=== PATIENT | female | born 1960 | race Caucasian/White ===

== ENCOUNTER 2019-02-12 07:43 | Emergency (ER) | payer BC, OTHER ==
[2019-02-12 08:07] VITALS: BP 148/93
[2019-02-12] MEDS ORDERED: Ketorolac INJ* 30 MG/ML 1 ML VIAL IM ONE (08:25)
--- NOTE | 2019-02-12 08:32 | UC ---
Shoulder Pain HPI - HPI Summary HPI Summary: 58-year-old female who started having right anterior shoulder pain Thanks afternoon with no known injury. She states she was not doing a lot of repetitive motion. She initially had some tingling in her fourth and fifth fingers but that has resolved. She continues to have pain in the anterior shoulder without radiation. She denies any other symptoms. - History of Current Complaint Chief Complaint: UCUpperExtremity Stated Complaint: RIGHT ARM PAIN Time Seen by Provider: 02/12/19 08:11 ?: No Onset/Duration: Gradual Onset Timing: Constant Severity Initially: Mild Severity Currently: Moderate Pain Intensity: 8 Character: Dull, Aching Aggravating Factor(s): Movement, Lifting Alleviating Factor(s): Nothing Associated Signs And Symptoms: Positive: Numbness/Tingling - Initially had some tingling in her fourth and fifth fingers but that resolved. - Allergies/Home Medications Allergies/Adverse Reactions: Allergies Allergy/AdvReac Type Severity Reaction Status Date / Time No Known Allergies Allergy Verified 02/12/19 08:09 Home Medications: Home Medications Cyanocobalamin (Vitamin B-12) [Vitamin B-12] 1,000 mcg PO 02/12/19 [History] Vitamin B Complex TAB* [B Complex-50*] 1 tab PO DAILY 02/12/19 [History Confirmed 02/12/19] PMH/Surg Hx/FS Hx/Imm Hx Previously Healthy: Yes - Surgical History Surgical History: None - Family History Known Family History: Positive: Non-Contributory - Social History Occupation: Retired Lives: With Family Alcohol Use: Occasionally Substance Use Type: None Smoking Status (MU): Never Smoked Tobacco Review of Systems All Other Systems Reviewed And Are Negative: Yes Musculoskeletal: Positive: Decreased ROM - Patient has right shoulder pain with abduction of her right arm., Other: - Pain mostly to the anterior deltoid area. Is Patient Immunocompromised?: No Physical Exam Triage Information Reviewed: Yes Appearance: Well-Appearing, No Pain Distress, Well-Nourished Vital Signs: Initial Vital Signs Temp 99.2 F 02/12/19 08:02 Pulse 89 02/12/19 08:02 Resp 18 02/12/19 08:02 BP 148/93 02/12/19 08:02 Pulse Ox 100 02/12/19 08:02 Vital Signs Reviewed: Yes Musculoskeletal: Positive: Strength Intact, ROM Limited @ - She has pain with right arm abduction., Other: - Good peripheral pulses, neuro sensation capillary refill. Good wrist and elbow stability without pain. Patient has point tenderness to the anterior right deltoid more in the bursa. No erythema, bruising, deformity or swelling is noted. Normal muscle contour. Good arm strength against resistance. Neurological Exam: Normal Psychological Exam: Normal Skin Exam: Normal Shoulder Course/Dx - Course Course Of Treatment: Right shoulder x-ray:FINDINGS: The bone mineralization is within normal limits. No fracture is identified. Anatomic alignment is maintained. 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 There is a nonspecific 1.1 cm calcified structure in the axillary soft tissues. IMPRESSION: 1. NO FRACTURE OR TRAUMATIC MALALIGNMENT IDENTIFIED. 2. NONSPECIFIC NONAGGRESSIVE APPEARING 1.1 CM CALCIFIED STRUCTURE IN THE AXILLARY SOFT TISSUES. The patient preferred not to have an arm sling to avoid her shoulder getting stiff. We discussed follow-up with a local orthopedist for further care if she has no improvement in 2 or 3 days. She is going to apply heat to the area as well as take Motrin as directed. We did discuss the calcified structure in her axillary soft tissues. I was unable to feel that on palpation however she's going to follow up with her primary care provider regarding that or with the orthopedist. - Differential Dx/Diagnosis Provider Diagnosis: Bursitis of right shoulder Discharge ED - Sign-Out/Discharge Documenting (check all that apply): Patient Departure All imaging exams completed and their final reports reviewed: Yes - Discharge Plan Condition: Fair Disposition: HOME Prescriptions: Ibuprofen TAB* [Motrin TAB* 600 MG] 600 mg PO Q8H PRN #30 tab PRN Reason: Pain - Mild Patient Education Materials: Shoulder Bursitis (ED) Referrals: Jesús Zayas MD [Medical Doctor] - No Primary Care Phys,NOPCP [Primary Care Provider] - Additional Instructions: Avoid movements that cause pain, avoid lifting more than 10 pounds, apply warm moist compresses to the area 4-6 times a day for 20 minutes each time. Take the ibuprofen every 8 hours as needed for pain, take it with food. Definite follow-up with the orthopedist in 2 or 3 days if no improvement. You may want to follow-up with your primary care provider for further evaluation of the calcific structure in the soft tissues of the under arm. - Billing Disposition and Condition Condition: FAIR Disposition: Home
== END 2019-02-12 09:16 | disposition home or self-care (01) ==
LOC: UCCORT 07:43
DX: M75.51 Bursitis of right shoulder (principal); M79.89 Other specified soft tissue disorders
CPT/HCPCS: 96372; 99202; G0463; J1885